=== PATIENT | female | born 2000 | race Caucasian/White ===

== ENCOUNTER 2020-01-22 21:34 | Emergency (ER) | payer BC ==
[~2020-01-22] VITALS: Ht 175.3 cm; Wt 80.0 kg
--- NOTE | 2020-01-22 21:59 | NUR ---
19/F came in via ambulance. "Bent down and pt reports she heard a pop and fell to the ground" Denies further injury. L knee deformity. 1,000mg ibuprofen BOLOGNA LACER. Nonambulatory. Pulses intact.
[2020-01-22] MEDS ORDERED: SODIUM CHLORIDE FLUSH 10ML SYR IVF ONE (22:00)
[2020-01-22] MEDS ORDERED: SODIUM CHLORIDE 0.9% 1,000ML IVBOLUS ONE (22:00)
[2020-01-22] MEDS ORDERED: PROPOFOL 10 MG/ML, 20ML IVPush ONE (22:00)
[2020-01-22] MEDS ORDERED: PLEASE ENTER ALLERGIES MC SCH (22:30)
[2020-01-22] MEDS ORDERED: ONDANSETRON 2MG/ML, 2ML ONE (22:52)
[2020-01-22] MEDS ORDERED: PROPOFOL 10 MG/ML, 20ML ONE (22:52)
--- NOTE | 2020-01-22 23:21 | NUR ---
Knee immobilizer placed during procedure.
--- NOTE | 2020-01-23 00:15 | NUR ---
Radiology called in regards to xray results. No answer. RN will follow up with radiology for results.
--- NOTE | 2020-01-23 00:58 | NUR ---
RN called radiology for results. Radiology stated the film got sent to the radiologist, results should appear shortly. RN will continue to monitor.
[2020-01-23] MEDS ORDERED: IBUPROFEN 600 MG TABLET ONE (01:01)
[2020-01-23 01:14] VITALS: BP 102/48
--- NOTE | 2020-01-23 01:16 | NUR ---
Pt educated on use of crutches and home instructions for knee immobilizer and ortho care. Pt demonstrated ambulating with crutches and verbalized understanding on home care.
[2020-01-23] MEDS ORDERED: IBUPROFEN 600 MG TABLET PO ONE (01:30)
== END 2020-01-23 01:37 | disposition home or self-care (01) ==
LOC: ED 01-23 01:29
DX: S83.015A Lateral dislocation of left patella, initial encounter (principal); X50.1XXA Overexertion from prolonged static or awkward postures, initial encounter; Y93.89 Activity, other specified; Y92.098 Other place in other non-institutional residence as the place of occurrence of the external cause; Y99.8 Other external cause status
CPT/HCPCS: 27560; 73560; 96360; 99285; J7030